=== PATIENT | male | born 1960 | race Caucasian/White ===

== ENCOUNTER 2024-11-17 19:54 | Outpatient (OUT) | payer MEDICARE, BC, SELFPAY ==
--- OUTSIDE RECORDS SUMMARY | 2024-09-07 08:33 | XMS_ITS ---
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
--- OUTSIDE RECORDS SUMMARY | 2024-10-06 04:20 | XMS_ITS ---
Author Organization The [facility] in [place] Address [address] [place] [address] Care Team Providers Care Precast Concrete Ironworker Name Role Phone Vivian Parham MD Primary Care Provider Zachery Foster [phone] Allergies No Known Allergies REASON FOR VISIT ALIYA/YOLANDA Medications Medication SIG (Take, Route, Frequency, Duration) Notes Start Date End Date Status hydroCHLOROthiazide 25 MG Oral for 90 Days Active Lisinopril 40 MG Oral for 90 Days Active Aspirin 81 MG 1 tablet Orally Once a day Active amLODIPine Besylate 5 MG Oral for 90 Days Active Fluticasone Propionate 50 MCG/ACT Nasal for 60 Days Active Multi Complete - as directed Orally Active Vitamin C 500 MG as directed Orally Active Niacin 500 MG 1 tablet with food Orally Once a day Active Magnesium 250 MG 1 tablet with a meal Orally Once a day Active Fish Oil 1000 MG 2 capsule Orally QD Active Simvastatin 80 MG Oral for 90 Days Active Tylenol 325 MG 1 capsule as needed Orally every 6 hrs Active Zinc 50 MG 1 tablet Orally Once a day Active Loratadine 10 MG Oral for 90 Days Active Social History Tobacco Use: Social History Observation Description Date Details (start date - stop date) Never Smoker NA - NA Tobacco Control (Standard) Question Answer Notes Tobacco use: Nonsmoker Problems Problem Type SNOMED Code ICD Code Onset Dates Problem Status W/U Status Risk Notes Problem Obstructive sleep apnea syndrome (58224446) ALIYA (obstructive sleep apnea) (G47.33) Active confirmed Problem Morbid obesity (563911702) Morbid obesity (E66.01) Active confirmed Vital Signs Weight 285.6 lbs 10/06/2024 Height 67 in 10/06/2024 Blood pressure systolic 136 mm Hg 10/07/19 25 Blood pressure diastolic 74 mm Hg 025 Temperature 96.8 degrees Fahrenheit 10/07/19 25 Heart Rate 57 /min 10/06/2024 Respiratory Rate 18 /min 10/06/2024 BMI 44.73 kg/m2 10/06/2024 Oximetry 97 % 10/06/2024 Encounters Encounter Location Date Provider Diagnosis Pulmonary Medicine [place] [address] [place] [address] 10/06/2024 Zachery Godwin ALIYA (obstructive sleep apnea) G47.33 and Morbid obesity E66.01 Assessments Encounter Date Diagnosis (ICD Code) Assessment Notes Treatment Notes Treatment Clinical Notes Section Notes 10/06/2024 ALIYA (obstructive sleep apnea) (ICD-10 - G47.33) Sgsh-bv-ytke encounter performed with the patient to document continued need for PAP therapy. -Current DME: [facility] -Split-night 02/04/2008: AHI 87 with SpO2 60% (4% scoring); CPAP [id number] -Compliance was reviewed from 09/05/2024 - 10/04/2024 -Total days used: 30 (100%) -Total of all days >4 hours of use: 29/ (97%) -Current model, mode, & set pressure: DreamStation 2 CPAP [id number] -Residual AHI: 1.2 -Air leak (median): 13.4 L/min -Mask/harness fitting: Nasal pillows - good -Sleep quality: Excellent -Daytime hypersomnolence: Decreased with CPAP use -Recommendations: Excellent compliance - he states he cannot sleep without it. Only concern is minor, waking up occasionally with a dry mouth. Suggested increasing humidity and/or consider a chin strap. He stated he is fine without a chin strap for now and admitted he likely would not use it. I do not see any need to change his settings or repeat a study at this time. However, he is now on Medicare and with their inane rules, he was cautioned that they may require him to have a study to re-qualify him; if so, I would recommend a split-night given the severity of his untreated ALIYA (AHI 87). He voiced understanding. If he does require a study, he may require a 30-90 day F/U to document compliance for any changes necessary. If he is titrated to the same pressure (CPAP [id number]), I do not see a point in seeing him back sooner for that, as he already had a pveu-oy-sriq on this same pressure and is doing excellent on it. Otherwise, F/U 1 year. -The patient was reminded to continue to wear the PAP @ bedtime and with any naps. -This ojlc-ec-zoxs visit comes with my authorization that the patient's DME may request to renew, reorder, and/or replace tubing, supplies, mask, and/or PAP device (if applicable). 10/06/2024 Morbid obesity (ICD-10 - E66.01) Patient's weight is inducing a restrictive pulmonary physiology. Weight loss indicated: Decrease calories, increase activity. Plan Of Treatment Treatment Notes Assessment Notes ALIYA (obstructive sleep apnea) Jcrn-lh-smex encounter performed with the patient to document continued need for PAP therapy. -Current DME: [facility] -Split-night 02/04/2008: AHI 87 with SpO2 60% (4% scoring); CPAP [id number] -Compliance was reviewed from 09/05/2024 - 10/04/2024 -Total days used: (100%) -Total of all days >4 hours of use: 29/ (97%) -Current model, mode, & set pressure: DreamStation 2 CPAP [id number] -Residual AHI: 1.2 -Air leak (median): 13.4 L/min -Mask/harness fitting: Nasal pillows - good -Sleep quality: Excellent -Daytime hypersomnolence: Decreased with CPAP use -Recommendations: Excellent compliance - he states he cannot sleep without it. Only concern is minor, waking up occasionally with a dry mouth. Suggested increasing humidity and/or consider a chin strap. He stated he is fine without a chin strap for now and admitted he likely would not use it. I do not see any need to change his settings or repeat a study at this time. However, he is now on Medicare and with their inane rules, he was cautioned that they may require him to have a study to re-qualify him; if so, I would recommend a split-night given the severity of his untreated ALIYA (AHI 87). He voiced understanding. If he does require a study, he may require a 30-90 day F/U to document compliance for any changes necessary. If he is titrated to the same pressure (CPAP 35riC1U), I do not see a point in seeing him back sooner for that, as he already had a weis-ma-igay on this same pressure and is doing excellent on it. Otherwise, F/U 1 year. -The patient was reminded to continue to wear the PAP @ bedtime and with any naps. -This jnwb-hd-ezrj visit comes with my authorization that the patient's DME may request to renew, reorder, and/or replace tubing, supplies, mask, and/or PAP device (if applicable). Morbid obesity Patient's weight is inducing a restrictive pulmonary physiology. Weight loss indicated: Decrease calories, increase activity. Next Appt Details Follow Up: 1 Year, Reason: Leonel FOLEY Provider Name:Zachery Citlali, 10/05/2025 08:00:00 AM, [address] [place], [address], Progress Notes * Kwesi ATKINSON BDOB:[birth year] (63 yo M)Acc No.[id number]:10/06/2024 New Patient Patient: Kwesi MARTINEZ Provider: Orly Godwin DO :1960 A ge:63 Y S ex:Male Date:10/06/2024 Address:[address] [place], [place] [address] Pcp:Vivian Parham MD Check In:08:15 AM ESTCheck O ut:08:59 AM EST Subjective: * Chief Complaints: * Leonel FOLEY/YOLANDA * HPI: E pworth Sleepiness Scale: NEW PATIENT 63yo male presents with history of ALIYA. He has been treated for ALIYA for many years - original study was a split-night from 02/04/2008 with AHI 87 with lowest SpO2 60% based on 4% desaturations, titrated to CPAP [id number]. He has remained on this pressure since then and reports excellent response from the CPAP. He denies any issues with the pressures, mask fitting, etc. He has nasal pillows. Admits to occasional dry mouth. He does not remember his humidity setting. Mild-moderate average leak at 13.4L/min - he does not have a chin strap. His current machine is relatively new - prior Kyara model was recalled and his current machine replaced that. MA Intake Comments:. Pawling Sleepiness Scale C capo of dozing while sitting and reading:?0 - Never C capo of dozing while watching TV: 1 - Slight Chance C capo of dozing while sitting in a public place: 0 - Never C capo of dozing as a passenger in a car for an hour without a break: 0 - Never C capo of dozing while lying down in the afternoon to rest: 1 - Slight Chance C capo of dozing while sitting and talking to someone: 0 - Never C capo of dozing while sitting quietly after lunch: 1 - Slight Chance C capo of dozing in a stopped car for a few minutes in traffic: 0 - Never T OTAL SCORE: 3 Patient is self referred for ALIYA. DME: [facility]. Patient denies any complaints today and reports great benefit from his PAP. Patient denies any complaints with his machine or supplies. Patient reports recently retiring and due to a change of insurance was recommended to follow up with a provider for his ALIYA. * ROS: G eneral/Constitutional: Fever or sweats d enies. C hange of appetite d enies. C hills d enies. W eight Change d enies. H EENT: Dry mouth d enies. S ore throat d enies. O ral Ulcers d enies. P ost Nasal Drip D enies. C ongestion D enies. H oarseness?Denies. C ardiovascular: Tachycardia d enies. E jesus D enies. C hest pain d enies. P alpitations d enies. R espiratory: Chest tightness d enies. P leurisy D enies. D yspnea d enies. C ough d enies. H emoptysis d enies. W heezing d enies.? G astrointestinal: Acid Reflux/GERD/Heartburn d enies. D ysphagia d enies. M usculoskeletal: Arthralgias/joint pain D enies. S kin: Easy bruising d enies. R sergey d enies. ? N eurologic: Seizures d enies. T remor d enies. H ematology: Abnormal Bleeding d enies. P sychiatric: Anxiety d enies. * Active Problem List E66.01 Morbid obesity Modified On:10/06/2024/U Status:confirmed G47.33 ALIYA (obstructive sle ep apnea) Modified On:10/06/2024/U Status:confirmed * Medical History: * Surgical History: c ervical fusion tonsillectomy lumbar ablation * Hospitalization/Major Diagno stic Procedure: D enies Past Hospitalization * Family History: N on-Contributory. Patient Adopted. 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 D rugs/Alcohol: D rugs H ave you used drugs other than those for medical reasons in the past 12 months? N o D oes the Patient have a History of Drug Abuse in the Past? N o Caffeine I ntake: O ccasionally Coffee Do you drink alcohol?: No. Do you smoke marijuana?: Denies. * Medications: T akingamLODIPine Besylate 5 MG Tablet Oral Aspirin 81 MG Tablet Delayed Release 1 tablet Orally Once a day Fish Oil 1000 MG Capsule 2 capsule Orally QD Fluticasone Propionate 50 MCG/ACT Suspension Nasal hydroCHLOROthiazide 25 MG Tablet Oral Lisinopril 40 MG Tablet Oral Loratadine 10 MG Tablet Oral Magnesium 250 MG Tablet 1 tablet with a meal Orally Once a day Multi Complete(Multiple Vitamins-Minerals) - Capsule as directed Orally Niacin 500 MG Tablet 1 tablet with food Orally Once a day Simvastatin 80 MG Tablet Oral Tylenol(Acetaminophen) 325 MG Capsule 1 capsule as needed Orally every 6 hrs Vitamin C 500 MG Capsule as directed Orally Zinc 50 MG Tablet 1 tablet Orally Once a day Medication List reviewed and reconciled with the patientTaking amLODIPine Besylate 5 MG Tablet Oral Taking Aspirin 81 MG Tablet Delayed Release 1 tablet Orally Once a day Taking Fish Oil 1000 MG Capsule 2 capsule Orally QD Taking Fluticasone Propionate 50 MCG/ACT Suspension Nasal Taking hydroCHLOROthiazide 25 MG Tablet Oral Taking Lisinopril 40 MG Tablet Oral Taking Loratadine 10 MG Tablet Oral Taking Magnesium 250 MG Tablet 1 tablet with a meal Orally Once a day Taking Multi Complete(Multiple Vitamins-Minerals) - Capsule as directed Orally Taking Niacin 500 MG Tablet 1 tablet with food Orally Once a day Taking Simvastatin 80 MG Tablet Oral Taking Tylenol(Acetaminophen) 325 MG Capsule 1 capsule as needed Orally every 6 hrs Taking Vitamin C 500 MG Capsule as directed Orally Taking Zinc 50 MG Tablet 1 tablet Orally Once a day Medication List reviewed and reconciled with the patient * Allergies: N .K.D.A.no[Allergies Verified] Objective: * Vitals: W t:285.6lbs, Ht:67in, BP:sittin/74mm Hg, Temp:Forehead:96.8F, HR:57/min, RR:18/min, BMI:44.73Index, Oxygen sat %:Room Air:97%, Ht-cm: 170.18 cm, Wt-k.55 kg. * Examination: E xam: GENERAL APPEARANCE: A ppears stated age. Skin N ormal. Mouth P ink and moist. Oropharynx M allampati Class IV. Macroglossia. Tongue ridging. Trachea M idline. Chest N ormal. Respiratory Normal M ovements, E ffort N ormal. Auscultation N ormal breath sounds. Cardiac R egular rate and rhythm. Gastrointestinal I ncreased central adiposity. Vascular N o edema. Musculoskeletal N ormal posture. Neurological F ocal, intact. Psychiatric A lert and oriented x3. Mentation/Cognition N ormal. Assessment: * Assessment: 1. O SA (obstructive sleep apnea) - G47.33 (Primary) 2 . M orbid obesity - E66.01 Plan: * Treatment: 2. M orbid obesity Notes: Patient's weight is inducing a restrictive pulmonary physiology. Weight loss indicated: Decrease calories, increase activity. * Procedure Codes: * Preventive Medicine: COVID Vaccination: H as patient had COVID Vaccination? COVID Vaccination Y es 12/06/2020 Immunization Status: P neumovacc P t Refused. I nfluenza P t Refused. Screenings/Counseling: F ALL RISK SCREENING Fall Risk Assessment: N o falls in the past year Are you afraid of falling? N o T OBACCO ACTION PLAN Exclusion: M edical Reason Non Smoker Type of Medical Reason: N ot indicated F KEN EXCLUSION Reason: P atient Reason refused/declined Type of Patient Reason: D rug declined by patient B [place] ACTION PLAN Above Normal BMI Follow-up D ietary management education, guidance, and counseling * Follow Up: 1 Year (Reason: ALIYA) * * Sign off status: Completed Visit Status: C HK (Check Out) true * Provider: Orly Godwin DO Date: 0 10/06/2024 Generated for Printi kam/Jeimy/eTransmitting on: 0 11/17/2024 07:55 PM EDT History and Physical Notes * HPI (History of Present Illness) Category Sub-Category Detail Notes Category Not es Pawling Sleepiness Scale Pawling Sleepiness Scale Chance of dozing while sitting and reading:: 0 - Never Patient is self referred for ALIYA. DME: [facility]. Patient denies any complaints today and reports great benefit from his PAP. Patient denies any complaints with his machine or supplies. Patient reports recently retiring and due to a change of insurance was recommended to follow up with a provider for his ALIYA. Chance of dozing while watching TV:: 1 - Slight Chance Chance of dozing while sitting in a publ ic place:: 0 - Never Chance of dozing as a passen ezequiel in a car for an hour without a break:: 0 - Never Chance of dozing while lying down in the afternoon to rest:: 1 - Slight Chance Chance of dozing while sitting and talki ng to someone:: 0 - Never Chance of dozing while sitting quietly a fter lunch:: 1 - Slight Chance Chance of dozing in a stopped car for a few minutes in traffic:: 0 - Never TOTAL SCORE:: 3 Examination Category Sub-Category Detail Notes Category Not es Exam GENERAL APPEARANCE: Appears stated age Skin Normal Mouth [place] and moist Trachea Midline Chest Normal Respiratory Normal Movements, Ef fort Normal Auscultation Normal breath sounds Cardiac Regular rate and rhy thm Gastrointestinal Increased central ad iposity Vascular No edema Musculoskeletal Normal posture Neurological Focal, intact Psychiatric Alert and oriented x 3 Mentation/Cognition Normal Oropharynx Mallampati Class IV. Macroglossia. Tongue ridging
--- OUTSIDE RECORDS SUMMARY | 2024-10-12 03:29 | XMS_ITS ---
Author Organization The [facility] in [place] Address [address] [place] [address] Care Team Providers Care Portable Track Line Marker Name Role Phone Vivian Parham MD Primary Care Provider Tay Zachery Faulkner Unavailable [phone] REASON FOR VISIT PSG -Diagnostic Procedures Procedure Date Ordered Date Performed Result Body Sit e Split Night Sleep Study 10/12/2024 N/A Encounters Encounter Location Date Provider Diagnosis Pulmonary Medicine [place] [address] [place] [address] 10/12/2024 Zacherytu Godwin ALIYA (obstructive sleep apnea) G47.33 Assessments Encounter Date Diagnosis (ICD Code) Assessment Notes Treatment Notes Treatment Clinical Notes Section Notes 10/12/2024 ALIYA (obstructive sleep apnea) (ICD-10 - G47.33) Plan Of Treatment Pending Test Test Name Order Date Split Night Sleep Study 10/12/2024 Next Appt Details Provider Name:Zachery Godwin, 10/05/2025 08:00:00 AM, [address] [place], [address], Progress Notes * Kwesi ATKINSON BDOB:[birth year] (63 yo M)Acc No.[id number]:10/12/2024 Patient: Ryley VERONICAKwesi Reshma :1960 A ge:63 Y S ex:Male Address:[address] [place] [address], [address] Subjective: * Chief Complaints: * P SG -Diagnostic * Medical History: * Surgical History: * Hospitalization/Major Diagno stic Procedure: * Medications: Objective: * Vitals: * Physical Examination: Assessment: * Assessment: 1. O SA (obstructive sleep apnea) - G47.33 (Primary) Plan: * Treatment: * Procedure Codes: * true * Date: Generated for Farideh humphrey/Jeimy/Adenike on: 0 11/17/2024 07:55 PM EDT
--- OUTSIDE RECORDS SUMMARY | 2024-11-17 19:55 | XMS_ITS | Patient Health Record ---
Author Organization The [facility] in [place] Address [address] [place] [address] Care Team Providers Care Director Consumer Name Role Phone Vivian Parham MD Primary Care Provider Zachery Foster Unavailable [phone] Allergies No Known Allergies Reason For Referral No Information Medications Medication SIG (Take, Route, Frequency, Duration) Notes Start Date End Date Status hydroCHLOROthiazide 25 MG Oral for 90 Days Active Lisinopril 40 MG Oral for 90 Days Active Multi Complete - as directed Orally Active Aspirin 81 MG 1 tablet Orally Once a day Active amLODIPine Besylate 5 MG Oral for 90 Days Active Fluticasone Propionate 50 MCG/ACT Nasal for 60 Days Active Vitamin C 500 MG as directed Orally Active Simvastatin 80 MG Oral for 90 Days Active Niacin 500 MG 1 tablet with food Orally Once a day Active Magnesium 250 MG 1 tablet with a meal Orally Once a day Active Fish Oil 1000 MG 2 capsule Orally QD Active Tylenol 325 MG 1 capsule as needed Orally every 6 hrs Active Zinc 50 MG 1 tablet Orally Once a day Active Loratadine 10 MG Oral for 90 Days Active Immunizations Vaccine Route Administration Date Status Comme nts Flu, (51779) -historic- Spli t, Prsrvtve Free, for Intradermal use Unknown 04/19/2022 Administered SARS-COV-2 (COVID 19 Pfizer 30mcg/0.3mL) Unknown 12/06/2020 Administered Social History Tobacco Use: Social History Observation Description Date Details (start date - stop date) Never Smoker NA - NA Tobacco Control (Standard) Question Answer Notes Tobacco use: Nonsmoker Problems Problem Type SNOMED Code ICD Code Onset Dates Problem Status W/U Status Risk Notes Problem Morbid obesity (532957912) Morbid obesity (E66.01) Active confirmed Problem Obstructive sleep apnea syndrome (04551058) ALIYA (obstructive sleep apnea) (G47.33) Active confirmed Vital Signs Heart Rate 57 /min 10/06/2024 Temperature 96.8 degrees Fahrenheit 10/06/2024 Respiratory Rate 18 /min 10/06/2024 Oximetry 97 % 10/06/2024 Blood pressure diastolic 74 mm Hg 10/06/2024 Height 67 in 10/06/2024 Blood pressure systolic 136 mm Hg 10/06/2024 Weight 285.6 lbs 10/06/2024 BMI 44.73 kg/m2 10/06/2024 Procedures Procedure Date Ordered Date Performed Result Body Sit e Split Night Sleep Study 10/12/2024 N/A Encounters Encounter Location Date Provider Diagnosis Pulmonary Medicine [address] [address] 10/06/[address] [facility] ALIYA (obstructive sleep apnea) G47.33 and Morbid obesity E66.01 Pulmonary Medicine [place] [address] [place] [address] 09/07/2024 [facility] Pulmonary Medicine [place] [address] [place] [address] 10/12/2024 [facility] ALIYA (obstructive sleep apnea) G47.33 Assessments Encounter Date Diagnosis (ICD Code) Assessment Notes Treatment Notes Treatment Clinical Notes Section Notes 10/06/2024 Morbid obesity (ICD-10 - E66.01) Patient's weight is inducing a restrictive pulmonary physiology. Weight loss indicated: Decrease calories, increase activity. 10/06/2024 ALIYA (obstructive sleep apnea) (ICD-10 - G47.33) Ewdp-yb-aijg encounter performed with the patient to document continued need for PAP therapy. -Current DME: [facility] -Split-night 02/04/2008: AHI 87 with SpO2 60% (4% scoring); CPAP [id number] -Compliance was reviewed from 09/05/2024 - 10/04/2024 -Total days used: (100%) -Total of all days >4 hours of use: 29 (97%) -Current model, mode, & set pressure: DreamStation 2 CPAP [id number] -Residual AHI: 1.2 -Air leak (median): 13.4 [...] is titrated to the same pressure (CPAP 53fgZ1K), I do not see a point in seeing him back sooner for that, as he already had a oero-ga-rjqq on this same pressure and is doing excellent on it. Otherwise, F/U 1 year. -The patient was reminded to continue to wear the PAP @ bedtime and with any naps. -This nbcw-mb-chgg visit comes with my authorization that the patient's DME may request to renew, reorder, and/or replace tubing, supplies, mask, and/or PAP device (if applicable). 10/12/2024 ALIYA (obstructive sleep apnea) (ICD-10 - G47.33) Plan Of Treatment Pending Test Test Name Order Date Split Night Sleep Study 10/12/2024 Next Appt Details Provider Name:Zachery Godwin, 10/05/2025 08:00:00 AM, [address] [place], [address], Insurance Providers Payer Name Payer Address Payer Phone Subscriber Number Group Number Insured Name Patient Relationship to Insured Coverage Start Date Coverage End Date [place]IC[place] [address] [place] [address] [id number] Kwesi Atkinson Self - patient is the insured [facility] [address] [place] [address] [id number] Kwesi Atkinson Self - patient is the insured Medical (General) History Medical History History ICD Code HLD (hyperlipidemia) E78.5 ALIYA (obstructive sleep apnea) G47.33 Seasonal allergies J30.2 Morbid obesity E66.01 Surgical History Surgery Date(Month/Year) cervical fusion tonsillectomy lumbar ablation
== END 2024-11-17 19:55 | disposition home or self-care (01) ==
LOC: SLEEP 19:54
PROVIDERS: PCP Internal Medicine; Visit Provider Internal Medicine
DX: G47.33 Obstructive sleep apnea (adult) (pediatric) (principal)
CPT/HCPCS: 95811